=== PATIENT | male | born 1960 | race Caucasian/White ===

== ENCOUNTER → 2016-11-04 | Outpatient (CLI) | payer OTHER ==
[~2016-11-04] MED LIST: OMEP-110 PO; OMNIPAQUE 350 MG/ML, 150 ML BOTTLE ONE
== END | disposition home or self-care (01) ==
LOC: CFH 10:11
PROVIDERS: ATTEND Internal Medicine Cardiovascular Disease
DX: I48.91 Unspecified atrial fibrillation (principal)
CPT/HCPCS: 75572; Q9967

== ENCOUNTER 2016-11-05 06:37 | Inpatient (IN) | payer OTHER ==
[2016-11-04 12:25] VITALS: BP 112/83
[2016-11-04 12:38] LABS: HEMATOCRIT 46.1 % (39.2-51.8); HEMOGLOBIN 15.5 g/dL (13.7-18.0); WHITE BLOOD COUNT 6.7 x10^3/uL (3.4-10)
[2016-11-04 12:45] LABS: BLOOD UREA NITROGEN 16 mg/dL (7-18)
[2016-11-04 12:48] LABS: ASPARTATE AMINO TRANSFERASE 20 U/L (15-37)
[~2016-11-05] VITALS: Ht 193 cm; Wt 100.0 kg
[~2016-11-05 06:37] MED LIST changes: -OMNIPAQUE 350 MG/ML, 150 ML BOTTLE ONE
[2016-11-05] MEDS ORDERED: SODIUM CHLORIDE 0.9% 1,000 ML IV SCH (06:59)
[2016-11-05] MEDS ORDERED: MIDAZOLAM 1 MG/ML, 5ML ONE (07:37)
[2016-11-05] MEDS ORDERED: FENTANYL PF 100 MCG/2ML ONE ×2 (07:37→13:25)
[2016-11-05] MEDS ORDERED: PROPOFOL 10 MG/ML, 20ML ONE (07:56)
[2016-11-05] MEDS ORDERED: EPHEDRINE 50 MG/ML, 1ML ONE (07:56)
[2016-11-05] MEDS ORDERED: DEXAMETHASONE 4 MG/ML, 5ML ONE (07:56)
[2016-11-05] MEDS ORDERED: ROCURONIUM 10 MG/ML ONE (07:56)
[2016-11-05] MEDS ORDERED: SUCCINYLCHOLINE 20 MG/ML, 10ML ONE (07:56)
[2016-11-05] MEDS ORDERED: PHENYLEPHRINE 10 MG/ML ONE (07:56)
[2016-11-05] MEDS ORDERED: ONDANSETRON 2MG/ML, 2ML ONE (07:56)
[2016-11-05] MEDS ORDERED: LIDOCAINE 2%, 20ML ONE (08:08)
[2016-11-05] MEDS ORDERED: PROTAMINE SULFATE 10 MG/ML, 5ML ONE (08:08)
[2016-11-05] MEDS ORDERED: ISOPROTERENOL 0.2MG/ML, 5ML ONE (08:08)
[2016-11-05] MEDS ORDERED: HEPARIN 1,000 UNITS/ML, 10ML ONE ×2 (08:09→11:13)
[2016-11-05] MEDS ORDERED: ACETAMINOPHEN 325 MG TABLET PO PRN ×2 (12:30→13:00)
[2016-11-05] MEDS ORDERED: ZOLPIDEM 5MG TABLET PO PRN (12:30)
[2016-11-05] MEDS ORDERED: PROMETHAZINE 25 MG/ML, 1ML IV PRN (13:00)
[2016-11-05] MEDS ORDERED: hydrALAzine 20 MG/ML, 1ML IV PRN (13:00)
[2016-11-05] MEDS ORDERED: LABETALOL 5MG/ML, 20ML IV PRN (13:00)
[2016-11-05] MEDS ORDERED: HYDROmorphone 1 MG/ML, 1ML IV PRN (13:00)
[2016-11-05] MEDS ORDERED: MEPERIDINE/PF 25MG/0.5ML IVPush PRN (13:00)
[2016-11-05] MEDS ORDERED: ONDANSETRON 2MG/ML, 2ML IVPush PRN (13:00)
[2016-11-05] MEDS ORDERED: ALBUTEROL SULFATE 2.5 MG/3 ML NPPB PRN (13:00)
[2016-11-05] MEDS ORDERED: MIDAZOLAM 1 MG/ML, 2ML IV PRN (13:00)
[2016-11-05] MEDS ORDERED: OXYcodone 5 MG/5 ML ORAL.SOL UDC PO PRN (13:00)
[2016-11-05] MEDS ORDERED: MIDAZOLAM 1 MG/ML, 2ML ONE (13:24)
[2016-11-05] MEDS ORDERED: OXYcodone 5 MG/5 ML ORAL.SOL UDC ONE (13:25)
[2016-11-05] MEDS ORDERED: ACETAMINOPHEN 650 MG/20.3 ML UDC ONE (13:25)
[2016-11-05] MEDS: FENTANYL PF 100 MCG/2ML IV PRN ×3 (13:40→13:50)
[2016-11-05] MEDS: APIXABAN 5 MG TABLET PO SCH (14:04)
[2016-11-05 15:05] VITALS: BP 126/76
[2016-11-05] MEDS: SOTALOL 80MG TABLET PO SCH (19:01)
[2016-11-05 19:29] VITALS: BP 115/78
[2016-11-06] VITALS (9 sets, daily range): BP systolic 63–114; BP diastolic 38–72
[2016-11-06] MEDS: SOTALOL 80MG TABLET PO SCH ×2 (06:22→18:13)
[2016-11-06] MEDS: OMEPRAZOLE 20 MG CAPSULE.DR PO SCH (08:51)
[2016-11-06] MEDS: APIXABAN 5 MG TABLET PO SCH ×2 (08:51→20:45)
[2016-11-06] MEDS ORDERED: KETOROLAC 30 MG/1 ML IVPush ONE (09:00)
[2016-11-06] MEDS ORDERED: APIX5TAB PO (09:39)
[2016-11-06] MEDS ORDERED: SOTA80TA18 PO (09:39)
[2016-11-06] MEDS ORDERED: MAALOX/HYOSCYAMINE/LIDOCAINE 45 ML BTL PO ONE (10:30)
[2016-11-06] MEDS: SODIUM CHLORIDE 0.9%, 250ML IVBOLUS ONE ×2 (10:50→11:00)
[2016-11-06] MEDS ORDERED: SODIUM CHLORIDE 0.9%, 250ML IVBOLUS ONE (13:30)
[2016-11-06] MEDS: SODIUM CHLORIDE 0.9% 1,000 ML IV SCH ×2 (13:35→18:12)
[2016-11-07 01:50] VITALS: BP 103/67
[2016-11-07] MEDS: SOTALOL 80MG TABLET PO SCH (06:45)
[2016-11-07] MEDS: SODIUM CHLORIDE 0.9% 1,000 ML IV SCH (06:46)
[2016-11-07 08:30] VITALS: BP 125/75
[2016-11-07] MEDS: OMEPRAZOLE 20 MG CAPSULE.DR PO SCH (08:36)
[2016-11-07] MEDS: APIXABAN 5 MG TABLET PO SCH (08:36)
== END 2016-11-07 11:30 | disposition home or self-care (01) | DRG 274 ==
LOC: CACL 06:37 → EDSTATUS 08:00 → ORIP 12:14 → 5SO 14:57 → OBSVTOIN 11-06 15:42
PROVIDERS: ADMIT Internal Medicine Cardiovascular Disease; ATTEND Internal Medicine Cardiovascular Disease
PROC: 02583ZZ Destruction of Conduction Mechanism, Percutaneous Approach (ICD-10-PCS; principal; 2016-11-06)
PROC: 02K83ZZ Map Conduction Mechanism, Percutaneous Approach (ICD-10-PCS; 2016-11-06)
PROC: 4A023FZ Measurement of Cardiac Rhythm, Percutaneous Approach (ICD-10-PCS; 2016-11-06)
PROC: 4A0234Z Measurement of Cardiac Electrical Activity, Percutaneous Approach (ICD-10-PCS; 2016-11-06)
PROC: B24BZZZ Ultrasonography of Heart with Aorta (ICD-10-PCS; 2016-11-06)
PROC: 0T7D8DZ Dilation of Urethra with Intraluminal Device, Via Natural or Artificial Opening Endoscopic (ICD-10-PCS; 2016-11-06)
DX: I48.0 Paroxysmal atrial fibrillation (principal); D68.69 Other thrombophilia; Q21.1 Atrial septal defect; S37.33XA Laceration of urethra, initial encounter; I48.92 Unspecified atrial flutter; R33.9 Retention of urine, unspecified; R31.0 Gross hematuria; X58.XXXA Exposure to other specified factors, initial encounter; R00.1 Bradycardia, unspecified; I95.1 Orthostatic hypotension; K21.9 Gastro-esophageal reflux disease without esophagitis; R31.9 Hematuria, unspecified; Z87.442 Personal history of urinary calculi; Z79.01 Long term (current) use of anticoagulants; Y93.89 Activity, other specified; Y92.89 Other specified places as the place of occurrence of the external cause; Y99.8 Other external cause status
CPT/HCPCS: 36415; 71020; 80053; 85025; 85347; 85610; 85730; 93005; 93306; 93312; 93321; 93325; 93613; 93623; 93655; 93656; 93662; C1731; C1732; C1766; C1894; G0378; J1100; J1644; J1885; J2250; J2405; J2704; J2720; J3010; J3490; C1730; C1759; J0330; J2370; J7030; J7050

== ENCOUNTER 2017-05-10 08:46 | Inpatient (IN) | payer OTHER ==
[2017-05-07 14:48] VITALS: BP 131/99
[2017-05-07 15:12] LABS: BASOPHILS # (AUTO) 0.02 x10^3/uL (0-0.1); BASOPHILS % (AUTO) 0 % (0-1); EOSINOPHILS # (AUTO) 0.03 x10^3/uL (0-0.4); EOSINOPHILS % (AUTO) 0 % (1-7); LYMPHOCYTES # (AUTO) 1.32 x10^3/uL (1-3.4); LYMPHOCYTES % (AUTO) 21 % (22-44); MD NO; MEAN CORPUSCULAR HEMOGLOBIN 29.1 pg (27.5-34.5); MEAN CORPUSCULAR HGB CONC 33.2 g/dL (33.2-36.2); MEAN CORPUSCULAR VOLUME 87.7 fL (81-97); MEAN PLATELET VOLUME 9.9 fL (7.4-10.4); MONOCYTES # (AUTO) 0.57 x10^3/uL (0.2-0.8); MONOCYTES % (AUTO) 9 % (2-9); NEUTROPHILS % (AUTO) 70 % (42-75); PLATELET COUNT 179 x10^3/uL (130-400); RED BLOOD COUNT 5.17 x10^6/uL (4.38-5.82); RED CELL DISTRIBUTION WIDTH 14.6 % (9.4-14.8)
[2017-05-07 15:26] LABS: ALBUMIN 4.2 g/dL (3.4-5.0); ANION GAP 7 mmol/L (5-15); CALCIUM 8.9 mg/dL (8.5-10.1); CHLORIDE 108 mmol/L (98-107)
[2017-05-07 15:29] LABS: ALANINE AMINOTRANSFERASE 29 U/L (12-78); ALKALINE PHOSPHATASE 102 U/L (45-117); BILIRUBIN,TOTAL 1.2 mg/dL (0.2-1.0)
[~2017-05-10] VITALS: Ht 193 cm; Wt 100.7 kg
[~2017-05-10 08:46] MED LIST changes: +APIX5TAB PO; +FLEC100T PO; +SOTA80TA18 PO
[2017-05-10] MEDS ORDERED: SODIUM CHLORIDE 0.9% 1,000 ML IV SCH (09:03)
[2017-05-10 09:07] VITALS: BP 135/109
[2017-05-10] MEDS ORDERED: SODIUM CHLORIDE 0.9% 1,000 ML IV ONE (09:30)
[2017-05-10] MEDS ORDERED: HEPARIN 1,000 UNITS/ML, 10ML ONE ×2 (11:09→12:23)
[2017-05-10] MEDS ORDERED: PROTAMINE SULFATE 10 MG/ML, 5ML ONE (11:09)
[2017-05-10] MEDS ORDERED: LIDOCAINE 2%, 20ML ONE (11:10)
[2017-05-10] MEDS ORDERED: FENTANYL PF 250 MCG/5ML ONE (11:12)
[2017-05-10] MEDS ORDERED: MIDAZOLAM 1 MG/ML, 2ML ONE (11:12)
[2017-05-10] MEDS ORDERED: ROCURONIUM 10MG/ML,5ML ONE (11:15)
[2017-05-10] MEDS ORDERED: DEXAMETHASONE 4 MG/ML, 1ML ONE (11:15)
[2017-05-10] MEDS ORDERED: PHENYLEPHRINE 10 MG/ML ONE (11:15)
[2017-05-10] MEDS ORDERED: PROPOFOL 10 MG/ML, 20ML ONE (11:15)
[2017-05-10] MEDS ORDERED: SUCCINYLCHOLINE 20 MG/ML, 10ML ONE (11:15)
[2017-05-10] MEDS ORDERED: ONDANSETRON 2MG/ML, 2ML ONE (11:15)
[2017-05-10] MEDS ORDERED: APIXABAN 5 MG TABLET ONE (11:46)
[2017-05-10] MEDS ORDERED: OXYcodone 5 MG/5 ML ORAL.SOL UDC PO PRN (14:30)
[2017-05-10] MEDS ORDERED: ACETAMINOPHEN 325 MG TABLET PO PRN (14:30)
[2017-05-10] MEDS ORDERED: LABETALOL 5MG/ML, 20ML IV PRN (14:30)
[2017-05-10] MEDS ORDERED: ALBUTEROL SULFATE 2.5 MG/3 ML NPPB PRN (14:30)
[2017-05-10] MEDS ORDERED: PROMETHAZINE 12.5 MG SUPP PR PRN (14:30)
[2017-05-10] MEDS ORDERED: ONDANSETRON 2MG/ML, 2ML IVPush PRN (14:30)
[2017-05-10] MEDS ORDERED: morphine SULFATE 10 MG/ML, 1ML IV PRN (14:30)
[2017-05-10] MEDS ORDERED: hydrALAzine 20 MG/ML, 1ML IV PRN (14:30)
[2017-05-10] MEDS ORDERED: MEPERIDINE/PF 25MG/0.5ML IVPush PRN (14:30)
[2017-05-10] MEDS ORDERED: ZOLPIDEM 5MG TABLET PO PRN (14:30)
[2017-05-10] MEDS ORDERED: MIDAZOLAM 1 MG/ML, 2ML IV PRN (14:30)
[2017-05-10] MEDS ORDERED: FENTANYL PF 100 MCG/2ML IV PRN (14:30)
[2017-05-10] MEDS: APIXABAN 5 MG TABLET PO SCH (16:16)
[2017-05-10] MEDS ORDERED: DIPHENHYDRAMINE 50 MG/ML, 1ML ONE (17:47)
[2017-05-10] MEDS ORDERED: methylPREDNISolone SOD SUCC 125 MG/2 ML ONE (17:47)
[2017-05-10 17:52] LABS: BASOPHILS # (AUTO) 0.01 x10^3/uL (0-0.1); BASOPHILS % (AUTO) 0 % (0-1); EOSINOPHILS % (AUTO) 0 % (1-7); LYMPHOCYTES # (AUTO) 0.76 x10^3/uL (1-3.4); LYMPHOCYTES % (AUTO) 10 % (22-44); MD NO; MEAN CORPUSCULAR HEMOGLOBIN 29.6 pg (27.5-34.5); MEAN CORPUSCULAR HGB CONC 33.4 g/dL (33.2-36.2); MEAN CORPUSCULAR VOLUME 88.5 fL (81-97); MEAN PLATELET VOLUME 9.9 fL (7.4-10.4); MONOCYTES # (AUTO) 0.03 x10^3/uL (0.2-0.8); MONOCYTES % (AUTO) 0 % (2-9); NEUTROPHILS # (AUTO) 6.92 x10^3/uL (1.8-6.8); NEUTROPHILS % (AUTO) 90 % (42-75); PLATELET COUNT 139 x10^3/uL (130-400); RED BLOOD COUNT 4.83 x10^6/uL (4.38-5.82); RED CELL DISTRIBUTION WIDTH 14.8 % (9.4-14.8)
[2017-05-10] MEDS ORDERED: DIPHENHYDRAMINE 50 MG/ML, 1ML IVPush ONE (18:00)
[2017-05-10] MEDS ORDERED: methylPREDNISolone SOD SUCC 125 MG/2 ML IVPush ONE (18:00)
[2017-05-10 18:01] LABS: ANION GAP 5 mmol/L (5-15); CALCIUM 8.6 mg/dL (8.5-10.1); CHLORIDE 111 mmol/L (98-107); CREATININE 0.89 mg/dL (0.7-1.3)
[2017-05-10 18:17] LABS: PROTHROMBIN TIME 11.4 Seconds (9.6-11.5)
[2017-05-10] MEDS ORDERED: OMNIPAQUE 350 MG/ML, 100ML BOTTLE ONE (18:48)
[2017-05-10 20:50] VITALS: BP 144/87
[2017-05-10] MEDS: FLECAINIDE 100MG TABLET PO SCH (22:07)
[2017-05-11 01:05] VITALS: BP 104/67
[2017-05-11 06:50] VITALS: BP 103/65
[2017-05-11] MEDS: FLECAINIDE 100MG TABLET PO SCH ×2 (07:53→21:46)
[2017-05-11] MEDS: APIXABAN 5 MG TABLET PO SCH ×2 (07:53→21:46)
[2017-05-11] MEDS: OMEPRAZOLE 20 MG CAPSULE.DR PO SCH (07:53)
[2017-05-11 14:20] VITALS: BP 105/70
[2017-05-11 20:08] VITALS: BP 118/75
[2017-05-12 01:18] VITALS: BP 104/69
[2017-05-12 08:17] VITALS: BP 109/71
[2017-05-12] MEDS: OMEPRAZOLE 20 MG CAPSULE.DR PO SCH (08:42)
[2017-05-12] MEDS: FLECAINIDE 100MG TABLET PO SCH (08:42)
[2017-05-12] MEDS: APIXABAN 5 MG TABLET PO SCH (08:42)
[2017-05-12 10:08] VITALS: BP 121/81
[2017-05-12 14:25] VITALS: BP 118/81
== END 2017-05-12 15:37 | disposition home or self-care (01) | DRG 274 ==
LOC: STAR 08:46 → OBSVTOIN 14:07 → ORIP 14:07 → 5SO 16:51
PROVIDERS: ADMIT Internal Medicine Cardiovascular Disease; ATTEND Internal Medicine Cardiovascular Disease
PROC: 02K83ZZ Map Conduction Mechanism, Percutaneous Approach (ICD-10-PCS; 2017-05-10)
PROC: 4A023FZ Measurement of Cardiac Rhythm, Percutaneous Approach (ICD-10-PCS; 2017-05-10)
PROC: 4A0234Z Measurement of Cardiac Electrical Activity, Percutaneous Approach (ICD-10-PCS; 2017-05-10)
PROC: 02583ZZ Destruction of Conduction Mechanism, Percutaneous Approach (ICD-10-PCS; principal; 2017-05-10 08:00)
DX: I48.92 Unspecified atrial flutter (principal); D68.69 Other thrombophilia; I31.9 Disease of pericardium, unspecified; I48.0 Paroxysmal atrial fibrillation; I10 Essential (primary) hypertension; I95.1 Orthostatic hypotension; K21.9 Gastro-esophageal reflux disease without esophagitis; Z87.442 Personal history of urinary calculi; R29.810 Facial weakness
CPT/HCPCS: 36415; 70450; 70496; 70498; 70551; 71046; 80048; 80053; 82962; 85025; 85347; 85610; 85730; 93308; 93312; 93321; 93325; 93613; 93655; 93656; 93662; C1731; C1732; C1766; C1893; C1894; J1100; J1644; J2250; J2405; J2704; J2720; J3010; J3490; Q9967; 92522-GN; C1730; C1759; J0330; J1200; J2370; J2930